=== PATIENT | male | born 1955 | race Caucasian/White ===

== ENCOUNTER 2018-12-28 16:37 | Inpatient (IN) | payer MEDICAID ==
[~2018-12-28] VITALS: Ht 165.1 cm; Wt 82.0 kg
[~2018-12-28 16:37] MED LIST: CALC600T12 PO; CLIN-5 PO; FOLI-43 PO; FURO-150 PO; HYDR2TAB28 PO; LACT10SO PO; LEVO25TA2 PO; LIDO700A32 TOP; MSC30T PO; MULT1TAB PO; OMEP20CA11 PO; POTA8TAB3 PO; RIFA550T PO; SPIR1TAB PO; VITA80008 PO; VITC500T PO
[2018-12-28] MEDS ORDERED: CALC-1197 PO (17:07)
[2018-12-28] MEDS ORDERED: FERR325T32 PO (17:07)
[2018-12-28] MEDS ORDERED: FLUO20CA39 PO (17:07)
[2018-12-28 17:15] LABS: BASOPHILS % (AUTO) 0.6 % (0-1); EOSINOPHILS # (AUTO) 0.1 X10'3 (0-0.9); EOSINOPHILS % (AUTO) 2.5 % (0-6); HEMATOCRIT 39.1 % (42.0-52.0); HEMOGLOBIN 13.2 g/dl (14.0-17.9); LYMPHOCYTES # (AUTO) 0.3 X10'3 (1.1-4.8); MEAN CORPUSCULAR HGB CONC 33.8 g/dL (33.0-36.5); MEAN CORPUSCULAR VOLUME 88.8 FL (78-98); MEAN PLATELET VOLUME 8.1 FL (7.4-10.4); MONOCYTES # (AUTO) 0.2 X10'3 (0-0.9); NEUTROPHILS # (AUTO) 1.6 X10'3 (1.8-7.7); NEUTROPHILS % (AUTO) 73.9 % (42-75); RED CELL DISTRIBUTION WIDTH 17.3 % (11.5-14.5); WHITE BLOOD COUNT 2.1 X10'3 (4.5-11.0)
[2018-12-28 17:17] LABS: PARTIAL THROMBOPLASTIN TIME 33 SECONDS (22-32)
[2018-12-28 17:19] LABS: PLATELET COUNT 33 X10'3 (140-440)
[2018-12-28 17:20] LABS: ALANINE AMINOTRANSFERASE 41 U/L (12-78); ALBUMIN 2.9 G/DL (3.4-5.0); ALBUMIN/GLOBULIN RATIO 0.8 (1.1-1.5); ALKALINE PHOSPHATASE 114 IU/L (46-116); ANION GAP 4 (8-16); ASPARTATE AMINO TRANSFERASE 44 U/L (10-37); BILIRUBIN,TOTAL 1.6 MG/DL (0.1-1.0); BLOOD UREA NITROGEN 12 MG/DL (7-18); BUN/CREATININE RATIO 14.3 (5.4-32.0); CALCIUM 8.1 MG/DL (8.5-10.1); CHLORIDE 108 MMOL/L (99-107); CREATININE 0.84 MG/DL (0.60-1.10); GLUCOSE 80 MG/DL (70-104); POTASSIUM 4.2 MMOL/L (3.5-5.1); SODIUM 142 MMOL/L (135-145); TOTAL CARBON DIOXIDE 30.3 MMOL/L (24-32); TOTAL PROTEIN 6.5 G/DL (6.4-8.2); eGFR > 90 ML/MIN
[2018-12-28 17:35] LABS: CLARITY,URINE CLEAR (Clear); COLOR,URINE YELLOW (Yellow); GLUCOSE, URINE NEGATIVE (Neg); KETONES,URINE TRACE mg/dl (Neg); LEUKOCYTE ESTERASE ,URINE NEGATIVE (Neg); NITRITES, URINE NEGATIVE (Neg); OCCULT BLOOD,URINE TRACE-INTACT (Neg); PH,URINE 6.5 (4.8-8.0); PROTEIN,URINE NEGATIVE (Neg)
[2018-12-28 17:36] LABS: UA COLLECTION TYPE CLN CATCH MIDSTREAM
[2018-12-28 17:42] LABS: MUCUS STRANDS FEW /LPF (Neg); SQUAMOUS EPITHELIAL CELL,UR FEW /LPF (FEW)
[2018-12-28 17:44] LABS: BACTERIA,URINE FEW /HPF (Neg); RBC,URINE 0-2 /HPF (0-2); WBC,URINE 0-4 /HPF (0-4)
[2018-12-28 18:06] LABS: TOTAL CELLS COUNTED 100
[2018-12-28 18:13] LABS: ANISOCYTOSIS 1+; ELLIPTOCYTES FEW; PLATELET ESTIMATE DECREASED; SCHISTOCYTES FEW
[2018-12-28] MEDS ORDERED: morphine 2 MG/ML inj. syringe IV PRN ×2 (18:40)
[2018-12-28] MEDS ORDERED: ondansetron/PF 4mg/2ml inj IV PRN (18:40)
[2018-12-28] MEDS ORDERED: magnesium hydroxide 30ml (MOM) UD suspension PO PRN (18:40)
[2018-12-28] MEDS ORDERED: diphenhydrAMINE 25mg capsule PO PRN (18:40)
[2018-12-28] MEDS ORDERED: potassium Cl 20 mEq SR tablet PO PRN ×2 (18:40)
[2018-12-28] MEDS ORDERED: PEG 3350/Na sulf,bicarb,Cl/KCl oral sol 4 liter bottle PO ONE (18:40)
[2018-12-28] MEDS ORDERED: diphenhydrAMINE 50 mg/ml inj IV PRN (18:40)
[2018-12-28] MEDS ORDERED: magnesium 4gm in 100ml NS 100 ML IV PRN (18:40)
[2018-12-28] MEDS ORDERED: magnesium 2GM in 50ml NS 50 ML IV PRN (18:40)
[2018-12-28] MEDS: K and/or MAG REPLACEMENT MC SCH (18:40)
[2018-12-28] MEDS ORDERED: mag hydrox/Alum hydrox/simeth 30ml oral suspension PO PRN (18:40)
[2018-12-28] MEDS ORDERED: acetaminophen 325mg tablet PO PRN (18:40)
[2018-12-28] MEDS ORDERED: magnesium Cl slow-release 64mg tablet PO PRN (18:40)
[2018-12-28] MEDS ORDERED: potassium CL 10mEq/100ml bag 100 ML IV PRN ×2 (18:40)
[2018-12-28] MEDS ORDERED: SPIR25TA5 PO (18:54)
[2018-12-28] MEDS ORDERED: VITAMIN A PO SCH (20:00)
[2018-12-28] MEDS ORDERED: non-formulary drug (Omeprazole 1 CAP) PO SCH (20:00)
--- NOTE | 2018-12-28 20:00 | NUR ---
Patient in room [facility]. I have received report from Maye TRUONG from ER and had the opportunity to ask questions and assume patient care. patient arrived with his on medical floor and received 1 unit of platelets transfusion and he is on Golytely for bowel prep. Patient is alert and oriented.
[2018-12-28 20:27] LABS: HEMATOCRIT 37.3 % (42.0-52.0); HEMOGLOBIN 12.7 g/dl (14.0-17.9); MEAN CORPUSCULAR HEMOGLOBIN 30.6 PG (27.0-31.0); MEAN CORPUSCULAR VOLUME 89.9 FL (78-98); MEAN PLATELET VOLUME 8.1 FL (7.4-10.4); RED BLOOD COUNT 4.15 X10'6 (4.70-6.10); RED CELL DISTRIBUTION WIDTH 17.1 % (11.5-14.5); WHITE BLOOD COUNT 2.1 X10'3 (4.5-11.0)
[2018-12-28 20:28] VITALS: BP 115/77
[2018-12-28 20:41] LABS: PLATELET COUNT 30 X10'3 (140-440)
[2018-12-28 20:48] VITALS: BP 119/79
[2018-12-28] MEDS ORDERED: LACTULOSE PO SCH (21:00)
[2018-12-28 21:03] VITALS: BP 122/79
[2018-12-28] MEDS: FLUoxetine 20mg capsule PO SCH (21:36)
[2018-12-28] MEDS: lactulose 20gm/30ml cup PO SCH (21:37)
[2018-12-28] MEDS: rifaximin 550mg tablet PO SCH (22:02)
[2018-12-28 22:10] VITALS: BP 127/78
[2018-12-28] MEDS: normal saline 1000ml 1,000 ML IV SCH (22:16)
[2018-12-29] VITALS (14 sets, daily range): BP systolic 96–133; BP diastolic 67–79
[2018-12-29] MEDS: morphine ER 30mg tablet PO SCH ×3 (00:39→16:59)
[2018-12-29] MEDS: normal saline 1000ml 1,000 ML IV SCH ×2 (04:39→05:36)
[2018-12-29 06:09] LABS: BASOPHILS % (AUTO) 0.2 % (0-1); HEMATOCRIT 37.1 % (42.0-52.0); HEMOGLOBIN 12.6 g/dl (14.0-17.9); LYMPHOCYTES # (AUTO) 0.3 X10'3 (1.1-4.8); LYMPHOCYTES % (AUTO) 11.9 % (21-51); MEAN CORPUSCULAR HEMOGLOBIN 30.4 PG (27.0-31.0); MEAN CORPUSCULAR VOLUME 89.4 FL (78-98); MEAN PLATELET VOLUME 8.4 FL (7.4-10.4); MONOCYTES # (AUTO) 0.3 X10'3 (0-0.9); MONOCYTES % (AUTO) 13.1 % (2-12); NEUTROPHILS # (AUTO) 1.7 X10'3 (1.8-7.7); NEUTROPHILS % (AUTO) 72.8 % (42-75); RED BLOOD COUNT 4.15 X10'6 (4.70-6.10); RED CELL DISTRIBUTION WIDTH 17.6 % (11.5-14.5); WHITE BLOOD COUNT 2.4 X10'3 (4.5-11.0)
--- NOTE | 2018-12-29 06:15 | NUR ---
Problems reprioritized. Patient report given, questions answered & plan of care reviewed with Raquel TRUONG.
[2018-12-29 06:37] LABS: ALANINE AMINOTRANSFERASE 38 U/L (12-78); ALBUMIN 2.8 G/DL (3.4-5.0); ALBUMIN/GLOBULIN RATIO 0.8 (1.1-1.5); ALKALINE PHOSPHATASE 104 IU/L (46-116); ANION GAP 7 (8-16); ASPARTATE AMINO TRANSFERASE 39 U/L (10-37); BILIRUBIN,TOTAL 2.3 MG/DL (0.1-1.0); BLOOD UREA NITROGEN 11 MG/DL (7-18); BUN/CREATININE RATIO 14.9 (5.4-32.0); CALCIUM 8.2 MG/DL (8.5-10.1); CHLORIDE 108 MMOL/L (99-107); CREATININE 0.74 MG/DL (0.60-1.10); GLUCOSE 77 MG/DL (70-104); MAGNESIUM 1.6 MG/DL (1.5-2.4); PHOSPHORUS 2.8 MG/DL (2.3-4.5); PLATELET COUNT 37 X10'3 (140-440); POTASSIUM 4.3 MMOL/L (3.5-5.1); SODIUM 143 MMOL/L (135-145); TOTAL CARBON DIOXIDE 27.6 MMOL/L (24-32); TOTAL PROTEIN 6.2 G/DL (6.4-8.2); eGFR > 90 ML/MIN
--- NOTE | 2018-12-29 07:31 | NUR ---
PAGED MD CAGLE PAGER ID: [phone] MESSAGE: MOHINDER SONI 347A PT. HAS CRITICAL VALUE- PLATELETS 37. PLEASE NOTE HIGH TSH 7.74. AVILA [id number]
[2018-12-29] MEDS ORDERED: MULTIVITAMINS W MINERALS PO SCH (08:00)
[2018-12-29] MEDS ORDERED: HYDROCHLOROTHIAZID PO SCH (08:00)
[2018-12-29] MEDS ORDERED: LUT PO SCH (08:00)
[2018-12-29] MEDS ORDERED: SPIRONOLACT PO SCH (08:00)
[2018-12-29] MEDS ORDERED: FLUoxetine 20mg capsule PO SCH (08:00)
[2018-12-29] MEDS: K and/or MAG REPLACEMENT MC SCH (08:00)
[2018-12-29 09:11] LABS: ANISOCYTOSIS 1+; PLATELET ESTIMATE DECREASED; TOTAL CELLS COUNTED 100
[2018-12-29] MEDS: lactulose 20gm/30ml cup PO SCH ×3 (09:58→21:02)
[2018-12-29] MEDS: levoTHYROXINE 100mcg tablet PO SCH (09:59)
[2018-12-29] MEDS: folic acid 1mg tablet PO SCH (10:00)
[2018-12-29] MEDS: ferrous sulfate 325mg tablet PO SCH (10:00)
[2018-12-29] MEDS: pantoprazole 40mg Tablet.DR PO SCH (10:00)
[2018-12-29] MEDS: multivitamins, therapeutics tablet PO SCH (10:00)
[2018-12-29] MEDS: rifaximin 550mg tablet PO SCH ×2 (10:01→21:02)
[2018-12-29] MEDS: spironolactone 25 MG tablet PO SCH (10:01)
[2018-12-29] MEDS: furosemide 20MG tablet PO SCH (10:01)
--- NOTE | 2018-12-29 10:33 | NUR ---
Pt had one episode of emesis. 100 yellow output. no blood noted. Zofran given per order.
--- NOTE | 2018-12-29 11:55 | NUR ---
PAGER ID: [phone] MESSAGE: [id number] Wagner Crum Does this pt. need to be on neutropenic precautions? WBC 2.4 Neutrophils 1.7?? Raquel [phone]
--- NOTE | 2018-12-29 12:30 | NUR ---
Par Addendum: 12/29/18 at 1230 by Klaudia Casas RN Patient went to [facility] with Phong TRUONG via wheelchair
[2018-12-29 12:48] LABS: HEMATOCRIT 36.7 % (42.0-52.0); HEMOGLOBIN 12.5 g/dl (14.0-17.9); MEAN CORPUSCULAR HEMOGLOBIN 30.3 PG (27.0-31.0); MEAN CORPUSCULAR HGB CONC 34.1 g/dL (33.0-36.5); MEAN CORPUSCULAR VOLUME 89.1 FL (78-98); MEAN PLATELET VOLUME 8.2 FL (7.4-10.4); RED BLOOD COUNT 4.12 X10'6 (4.70-6.10); RED CELL DISTRIBUTION WIDTH 16.9 % (11.5-14.5); WHITE BLOOD COUNT 3.1 X10'3 (4.5-11.0)
[2018-12-29 12:55] LABS: PLATELET COUNT 34 X10'3 (140-440)
--- NOTE | 2018-12-29 12:57 | NUR ---
PAGER ID: [phone] MESSAGE: Radames Edward 347A To make you aware: Pt. has a critical lab value of 34 platelets. Raquel [phone]
[2018-12-29] MEDS ORDERED: fentaNYL/PF 50MCG/1 ML 2ML syringe ONE (13:00)
[2018-12-29] MEDS ORDERED: MIDAZolam 5mg/5ml vial ONE (13:00)
--- NOTE | 2018-12-29 14:59 | NUR ---
PT. BACK ON THE FLOOR FROM GI LAB.
--- NOTE | 2018-12-29 19:12 | NUR ---
PT HAS NO IV R/T HAVING FIELD START IN. MULTIPLE ATTEMPTS BY DIFFERENT NURSES WERE ATTEMPTED. AWARE. PT. COMFORTABLE IN BED RESTING. NO S/SX BLEEDING NOTED. GAVE REPORT TO ISABEL TRUONG. SHE IS AWARE PT. HAS NO IV.
[2018-12-29] MEDS: FLUoxetine 20mg capsule PO SCH (21:02)
--- NOTE | 2018-12-29 22:00 | NUR ---
Patient's 24hr tele monitor is up. Patient had been sinus rhythm, sinus leticia in the 50's. Tele monitor discontinued.
[2018-12-30] VITALS: BP 98/64
[2018-12-30] MEDS: normal saline 1000ml 1,000 ML IV SCH (01:28)
[2018-12-30 05:28] LABS: ALANINE AMINOTRANSFERASE 36 U/L (12-78); ALBUMIN 2.5 G/DL (3.4-5.0); ALBUMIN/GLOBULIN RATIO 0.8 (1.1-1.5); ALKALINE PHOSPHATASE 94 IU/L (46-116); ANION GAP 7 (8-16); ASPARTATE AMINO TRANSFERASE 32 U/L (10-37); BLOOD UREA NITROGEN 12 MG/DL (7-18); BUN/CREATININE RATIO 14.8 (5.4-32.0); CALCIUM 7.5 MG/DL (8.5-10.1); CHLORIDE 108 MMOL/L (99-107); CREATININE 0.81 MG/DL (0.60-1.10); GLUCOSE 80 MG/DL (70-104); MAGNESIUM 1.4 MG/DL (1.5-2.4); POTASSIUM 3.7 MMOL/L (3.5-5.1); SODIUM 141 MMOL/L (135-145); TOTAL CARBON DIOXIDE 26.5 MMOL/L (24-32); TOTAL PROTEIN 5.8 G/DL (6.4-8.2); eGFR > 90 ML/MIN
[2018-12-30 05:40] LABS: BASOPHILS % (AUTO) 0.2 % (0-1); EOSINOPHILS % (AUTO) 1.9 % (0-6); HEMATOCRIT 35.2 % (42.0-52.0); HEMOGLOBIN 12.1 g/dl (14.0-17.9); LYMPHOCYTES # (AUTO) 0.3 X10'3 (1.1-4.8); LYMPHOCYTES % (AUTO) 10.7 % (21-51); MEAN CORPUSCULAR HEMOGLOBIN 30.7 PG (27.0-31.0); MEAN CORPUSCULAR HGB CONC 34.5 g/dL (33.0-36.5); MEAN CORPUSCULAR VOLUME 89.1 FL (78-98); MEAN PLATELET VOLUME 8.6 FL (7.4-10.4); MONOCYTES # (AUTO) 0.3 X10'3 (0-0.9); MONOCYTES % (AUTO) 12.5 % (2-12); NEUTROPHILS # (AUTO) 1.8 X10'3 (1.8-7.7); NEUTROPHILS % (AUTO) 74.7 % (42-75); RED BLOOD COUNT 3.95 X10'6 (4.70-6.10); RED CELL DISTRIBUTION WIDTH 16.5 % (11.5-14.5); WHITE BLOOD COUNT 2.4 X10'3 (4.5-11.0)
[2018-12-30 05:46] LABS: PLATELET COUNT 33 X10'3 (140-440)
--- NOTE | 2018-12-30 06:15 | NUR ---
Critical Platelet of [address] Robertson notified. No new orders.
--- NOTE | 2018-12-30 06:35 | NUR ---
Problems reprioritized. Patient report given, questions answered & plan of care reviewed with Angie TRUONG.
--- NOTE | 2018-12-30 06:44 | NUR ---
Patient in room [facility]. I have received report from Dottie TRUONG and had the opportunity to ask questions and assume patient care.
[2018-12-30 07:00] VITALS: BP 97/59
[2018-12-30 07:36] LABS: TOTAL CELLS COUNTED 100
[2018-12-30 07:38] LABS: ANISOCYTOSIS 1+; PLATELET ESTIMATE DECREASED
[2018-12-30] MEDS: furosemide 20MG tablet PO SCH (07:39)
[2018-12-30] MEDS: spironolactone 25 MG tablet PO SCH (07:39)
[2018-12-30] MEDS: lactulose 20gm/30ml cup PO SCH (07:47)
[2018-12-30] MEDS: levoTHYROXINE 100mcg tablet PO SCH (07:47)
[2018-12-30] MEDS: pantoprazole 40mg Tablet.DR PO SCH (07:47)
[2018-12-30] MEDS: multivitamins, therapeutics tablet PO SCH (07:47)
[2018-12-30] MEDS: folic acid 1mg tablet PO SCH (07:47)
[2018-12-30] MEDS: ferrous sulfate 325mg tablet PO SCH (07:47)
[2018-12-30] MEDS: rifaximin 550mg tablet PO SCH (07:47)
[2018-12-30] MEDS: morphine ER 30mg tablet PO SCH ×2 (07:51)
[2018-12-30] MEDS: K and/or MAG REPLACEMENT MC SCH (08:00)
--- NOTE | 2018-12-30 09:34 | NUR ---
Paged Dr. Ibarra regarding platelet count of 33 this am and that there were no blood in the stool as of this time. Will monitor
[2018-12-30] MEDS ORDERED: LEVO25TA7 PO (09:42)
[2018-12-30 11:00] VITALS: BP 102/74
--- NOTE | 2018-12-30 12:30 | NUR ---
Discharged patient home accompanied by his . Discharge instructions was given to patient, he verbalized understanding of all instructions made. Peripheral IV catheter removed, tip intact - pressure dressing applied for 5 minutes. New prescription called in to [facility] in [place] per patient request. Instructed patient to ensure he has all the belongings with him
[2019-01-01 13:25] LABS: OCCULT BLOOD STOOL POSITIVE (Neg)
== END 2018-12-30 12:30 | disposition home or self-care (01) | DRG 244 ==
LOC: ER 16:38 → SUR 3N 19:39
PROVIDERS: ADMIT Family Medicine; ATTEND Family Medicine
PROC: 30233R1 Transfusion of Nonautologous Platelets into Peripheral Vein, Percutaneous Approach (ICD-10-PCS; 2018-12-28)
PROC: 0DJD8ZZ Inspection of Lower Intestinal Tract, Via Natural or Artificial Opening Endoscopic (ICD-10-PCS; principal; 2018-12-29)
DX: K57.31 Diverticulosis of large intestine without perforation or abscess with bleeding (principal); D61.818 Other pancytopenia; I85.00 Esophageal varices without bleeding; K76.6 Portal hypertension; B19.20 Unspecified viral hepatitis C without hepatic coma; K64.8 Other hemorrhoids; E03.9 Hypothyroidism, unspecified; F12.90 Cannabis use, unspecified, uncomplicated; F32.9 Major depressive disorder, single episode, unspecified; G89.29 Other chronic pain; M54.9 Dorsalgia, unspecified; I10 Essential (primary) hypertension; K21.9 Gastro-esophageal reflux disease without esophagitis; K74.60 Unspecified cirrhosis of liver; Z80.1 Family history of malignant neoplasm of trachea, bronchus and lung; Z80.8 Family history of malignant neoplasm of other organs or systems; Z87.11 Personal history of peptic ulcer disease; Z90.49 Acquired absence of other specified parts of digestive tract; Z80.9 Family history of malignant neoplasm, unspecified; Z82.49 Family history of ischemic heart disease and other diseases of the circulatory system; Z87.442 Personal history of urinary calculi
CPT/HCPCS: 36415; 45378; 71045; 80053; 81001; 82272; 83735; 84100; 84443; 85025; 85027; 85610; 85730; 86885; 86900; 86901; 87081; 93005; 99152; 99153; 99285; A4620; G0378; J2250; J2405; J3010; J3475; J7030; J7040; P9035